=== PATIENT | female | born 1985 | race Caucasian/White ===

== ENCOUNTER 2017-11-01 12:16 | Emergency (ER) | payer MEDICAID ==
[~2017-11-01] VITALS: Ht 157.5 cm; Wt 75.0 kg
[~2017-11-01 12:16] MED LIST: NO HOME MEDS; ONDA4TAB12 PO
[2017-11-01 14:41] LABS: URINE HCG NEGATIVE (NEG)
[2017-11-01 14:43] LABS: CLARITY,URINE CLEAR (Clear); COLOR,URINE YELLOW (Yellow); GLUCOSE, URINE NEGATIVE (Neg); KETONES,URINE NEGATIVE (Neg); LEUKOCYTE ESTERASE ,URINE NEGATIVE (Neg); NITRITES, URINE NEGATIVE (Neg); OCCULT BLOOD,URINE NEGATIVE (Neg); PH,URINE 6.5 (4.8-8.0); PROTEIN,URINE NEGATIVE (Neg); UROBILINOGEN,URINE 0.2 E.U/dL (0.2-1.0)
[2017-11-01 14:44] LABS: UA COLLECTION TYPE CLN CATCH MIDSTREAM
[2017-11-01] MEDS ORDERED: NAPR-56 PO (15:27)
[2017-11-01 15:35] VITALS: BP 130/77
== END 2017-11-01 15:37 | disposition home or self-care (01) ==
LOC: ER 12:16
DX: M25.551 Pain in right hip (principal); Z90.49 Acquired absence of other specified parts of digestive tract; Z98.51 Tubal ligation status; W19.XXXA Unspecified fall, initial encounter; Y93.89 Activity, other specified; Y92.89 Other specified places as the place of occurrence of the external cause; Y99.9 Unspecified external cause status
CPT/HCPCS: 72170; 81003; 81025; 99285

== ENCOUNTER 2019-04-19 11:44 | Day surgery (SDC) | payer MEDICAID ==
[2019-04-18 16:01] LABS: BASOPHILS # (AUTO) 0.1 X10'3 (0-0.2); BASOPHILS % (AUTO) 0.5 % (0-1); EOSINOPHILS # (AUTO) 0.1 X10'3 (0-0.9); EOSINOPHILS % (AUTO) 0.6 % (0-6); LYMPHOCYTES # (AUTO) 2.9 X10'3 (1.1-4.8); LYMPHOCYTES % (AUTO) 25.9 % (21-51); MEAN CORPUSCULAR HEMOGLOBIN 31.7 PG (27.0-31.0); MEAN CORPUSCULAR HGB CONC 34.4 g/dL (33.0-36.5); MEAN CORPUSCULAR VOLUME 92.1 FL (78-98); MONOCYTES # (AUTO) 0.9 X10'3 (0-0.9); MONOCYTES % (AUTO) 7.7 % (2-12); NEUTROPHILS # (AUTO) 7.4 X10'3 (1.8-7.7); NEUTROPHILS % (AUTO) 65.3 % (42-75); PRE OP HEMATOCRIT 37.8 % (35.0-45.0); PRE OP PLATELET COUNT 196 X10'3 (140-440); RED BLOOD COUNT 4.11 X10'6 (4.20-5.60); RED CELL DISTRIBUTION WIDTH 12.9 % (11.5-14.5)
[2019-04-18 16:14] LABS: ALBUMIN 3.9 G/DL (3.4-5.0); ALBUMIN/GLOBULIN RATIO 1.2 (1.1-1.5); ALKALINE PHOSPHATASE 66 IU/L (46-116); BLOOD UREA NITROGEN 17 MG/DL (7-18); BUN/CREATININE RATIO 22.1 (6.6-38.0); CALCIUM 9.3 MG/DL (8.5-10.1); CHLORIDE 108 MMOL/L (99-107); CREATININE 0.77 MG/DL (0.40-0.90); PRE OP ALT 21 U/L (30-65); PRE OP ANION GAP 7 (8-16); PRE OP AST 17 U/L (10-37); PRE OP BILIRUB, TOTAL 0.4 MG/DL (0.0-1.0); PRE OP GLUCOSE 82 MG/DL (70-104); PRE OP POTASSIUM 3.8 MMOL/L (3.4-5.1); PRE OP SODIUM 143 MMOL/L (135-145); TOTAL CARBON DIOXIDE 28.3 MMOL/L (24-32); TOTAL PROTEIN 7.1 G/DL (6.4-8.2); eGFR 85 ML/MIN
[2019-04-19] VITALS (8 sets, daily range): BP systolic 105–124; BP diastolic 62–74
[~2019-04-19] VITALS: Ht 157.5 cm; Wt 74.9 kg
[~2019-04-19 11:44] MED LIST changes: +DOCU-148 PO; +FAMO-127 PO; -NO HOME MEDS; -ONDA4TAB12 PO; +cefazolin/dext.iso 2gm/50ml 50 ML IV ONE; +famotidine 20mg tablet PO ONE; +ringers solution, lacted 1,000 ML IV SCH
[2019-04-19] MEDS ORDERED: LIDOcaine 1% 30ml preserv. free vial ONE (13:27)
[2019-04-19] MEDS ORDERED: BUPIVAcaine/PF 2.5mg/ml (0.25%) 10ml vial ONE (13:27)
[2019-04-19] MEDS ORDERED: BUPIVAcaine/PF 2.5 mg/ml (0.25%) 30ml vial ONE (13:28)
[2019-04-19] MEDS ORDERED: BUPIVACAINE liposomal/PF 13.3 MG/ML vial IM ONE ×2 (13:28→14:01)
[2019-04-19] MEDS ORDERED: dexamethasone sod phosphate 10mg/ml inj ONE (14:11)
[2019-04-19] MEDS ORDERED: ondansetron/PF 4mg/2ml inj ONE (14:11)
[2019-04-19] MEDS ORDERED: sevoflurane 250ml liquid IH ONE (14:11)
[2019-04-19] MEDS ORDERED: fentaNYL/PF 50MCG/1 ML 2ML syringe ONE (14:11)
[2019-04-19] MEDS ORDERED: midazolam 2 mg/2 ml injection ONE (14:12)
[2019-04-19] MEDS ORDERED: BUPIVAcaine/PF 2.5mg/ml (0.25%) 10ml vial IJ ONE (14:44)
[2019-04-19] MEDS ORDERED: ketorolac trometh. 30mg/ml inj. ONE (15:35)
[2019-04-19] MEDS ORDERED: LIDOcaine 2% (20mg/ml) 5ml vial ONE (15:35)
[2019-04-19] MEDS ORDERED: rocuronium 10mg/ml inj IV ONE (15:35)
[2019-04-19] MEDS ORDERED: propofol inj 20 ML IV ONE (15:35)
[2019-04-19] MEDS ORDERED: oxyCODONE/APAP 5-325mg tablet PO PRN ×2 (15:50)
[2019-04-19] MEDS ORDERED: meperidine/PF 25mg/ml syringe ONE (15:51)
--- NOTE | 2019-04-19 15:52 | NUR ---
Received from OR via , accompanied by Anesthesiologist DR MCCANN and report given by Anesthesiolgist. AWAKE ANF GLOST PLACER NAUSEA AND PAIN. VITALS STABLE. DRESSINGS DI. ABD SOFT.
[2019-04-19] MEDS ORDERED: ringers solution, lacted 1,000 ML IV SCH (15:53)
[2019-04-19] MEDS ORDERED: morphine 2 MG/ML inj. syringe IV PRN (15:55)
[2019-04-19] MEDS ORDERED: ondansetron/PF 4mg/2ml inj IV PRN (15:55)
[2019-04-19] MEDS ORDERED: proCHLORperazine 10 MG/2 ml inj IV PRN (15:55)
[2019-04-19] MEDS ORDERED: meperidine/PF 25mg/ml syringe IV PRN ×2 (15:55)
[2019-04-19] MEDS ORDERED: morphine 4 MG/ML inj SYRINge IV PRN (15:55)
[2019-04-19] MEDS: meperidine/PF 25mg/ml syringe IV PRN ×2 (15:58→16:03)
--- NOTE | 2019-04-19 17:02 | NUR ---
AWAKE AND ORIENTED. VITALS STABLE. DRESSINGS DI. STATES PAIN IMPROVING. HOME WITH A FRIEND AT THIS TIME.
== END 2019-04-19 15:52 | disposition home or self-care (01) ==
LOC: PAS 11:44
PROVIDERS: ATTEND Surgery
DX: K43.2 Incisional hernia without obstruction or gangrene (principal); K21.9 Gastro-esophageal reflux disease without esophagitis; K90.49 Malabsorption due to intolerance, not elsewhere classified; Z98.51 Tubal ligation status; F17.210 Nicotine dependence, cigarettes, uncomplicated; F17.290 Nicotine dependence, other tobacco product, uncomplicated; Z72.89 Other problems related to lifestyle; Z90.49 Acquired absence of other specified parts of digestive tract; Z79.899 Other long term (current) drug therapy; Z82.5 Family history of asthma and other chronic lower respiratory diseases; Z82.49 Family history of ischemic heart disease and other diseases of the circulatory system; Z80.0 Family history of malignant neoplasm of digestive organs
CPT/HCPCS: 36415; 49654; 64488; 80053; 82948; 85025; C1781; C9290; J1100; J1885; J2001; J2175; J2250; J2405; J2704; J3010; J3490; S2900; A4215; A4618; J7120

== ENCOUNTER 2021-08-15 06:26 | Emergency (ER) | payer MEDICAID ==
[~2021-08-15] VITALS: Ht 157.5 cm; Wt 75.5 kg
[~2021-08-15 06:26] MED LIST changes: -FAMO-127 PO; +FAMO-280 PO; -cefazolin/dext.iso 2gm/50ml 50 ML IV ONE; -famotidine 20mg tablet PO ONE; -ringers solution, lacted 1,000 ML IV SCH
[2021-08-15 09:07] VITALS: BP 134/84
[2021-08-15] MEDS ORDERED: ERYT1OIN6 RIGHTEYE (09:21)
[2021-08-15] MEDS ORDERED: VALA10002 PO (09:21)
[2021-08-15] MEDS ORDERED: PRED20TA PO (09:21)
== END 2021-08-15 10:39 | disposition home or self-care (01) ==
LOC: ER 06:27
DX: G51.0 Bell's palsy (principal); Z90.49 Acquired absence of other specified parts of digestive tract; Z98.51 Tubal ligation status; Z79.899 Other long term (current) drug therapy
CPT/HCPCS: 99283